=== PATIENT | female | born 1945 | race Caucasian/White ===

== ENCOUNTER 2021-07-27 19:40 | Inpatient (IN) ==
--- NOTE | 2021-07-27 19:57 | Emergency Department Note ---
History of Present Illness General Chief complaint: Fall Stated complaint: Fall Time Seen by Provider: 07/27/21 19:42 Source: patient and EMS Mode of arrival: EMS Limitations: clinical acuity History of Present Illness She comes in after apparently suffering mechanical fall at [facility] she was standing out of a lift chair and fell over. She did hit her head there was no apparent loss of consciousness. She is complaining of back pain and headache. She is wearing a cervical collar. She is on a backboard. Denies abdominal pain chest pain or shortness of breath. 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 She is on Eliquis. She has been vaccinated against COVID. Home Medications Medication Instructions Recorded Confirmed Type acetaminophen 500 mg tablet 1,000 mg PO Q6H PRN MDD 3 GRAMS/07/27/21 07/27/21 History (Tylenol Extra Strength) HOURS apixaban 5 mg tablet (Eliquis) 5 mg PO BID17 07/27/21 07/27/21 History atorvastatin 40 mg tablet 40 mg PO QAM 07/27/21 07/27/21 History buspirone 5 mg tablet 5 mg PO BID17 07/27/21 07/27/21 History cetirizine 10 mg tablet (Zyrtec) 10 mg PO QAM 07/27/21 07/27/21 History cholecalciferol (vitamin D3) 25 25 mcg PO QAM 07/27/21 07/27/21 History mcg (1,000 unit) capsule (Vitamin D3) citalopram 40 mg tablet 40 mg PO QAM 07/27/21 07/27/21 History clopidogrel 75 mg tablet (Plavix) 75 mg PO QAM 07/27/21 07/27/21 History docusate sodium 100 mg capsule 100 mg PO BID17 07/27/21 07/27/21 History furosemide 40 mg tablet (Lasix) 40 mg PO QAM 07/27/21 07/27/21 History lorazepam 0.5 mg tablet 0.5 mg PO BID17 07/27/21 07/27/21 History losartan 25 mg tablet 25 mg PO QAM 07/27/21 07/27/21 History metoprolol succinate 25 mg 25 mg PO QAM 07/27/21 07/27/21 History tablet,extended release 24 hr mirtazapine 15 mg tablet 15 mg PO HS 07/27/21 07/27/21 History nitroglycerin 0.4 mg sublingual 0.4 mg SUBLINGUAL DIRECTED PRN 07/27/21 07/27/21 History tablet (Nitrostat) polyethylene glycol 3350 17 17 g PO QAM 07/27/21 07/27/21 History gram/dose oral powder (Miralax) trazodone 50 mg tablet 50 mg PO HS 07/27/21 07/27/21 History white petrolatum (Vaseline) 1 applic TOPICAL BID17 07/27/21 07/27/21 History Allergies Allergy/AdvReac Type Severity Reaction Status Date / Time atorvastatin AdvReac Intermediate severe Verified 07/27/21 20:55 myalgias--SEE COMMENT morphine AdvReac Intermediate N/V Verified 07/27/21 20:55 Past Med/Surg History Medical History Anxiety H/O: HTN (hypertension) Surgical History No pertinent past surgical history Social History Smoking Status: Never smoker Preferred Language: Lebanese Feels Safe at Home: Yes Review of Systems A total of 10 systems reviewed and were otherwise negative Physical Exam Vital Signs Vital Signs - 24 hr 07/27/21 19:43 07/27/21 19:52 07/27/21 19:53 Temperature 36.3 C L Temperature Source Oral Pulse Rate 57 L 71 Pulse Rate [Right Finger] 63 Pulse Rhythm Irregular Pulse Rhythm [Right Finger] Regular Pulse Strength [Right Finger] Normal Respiratory Rate 21 21 16 Respiratory Effort / Characteristics Non-Labored Spontaneous Respiratory Depth Normal Respiratory Pattern Blood Pressure 210/85 H Blood Pressure [Right Arm] 188/82 H Blood Pressure Mean 126 Blood Pressure Mean [Right Arm] 117 Blood Pressure Position Lying Blood Pressure Position [Right Arm] Lying Pulse Oximetry 93 88 L 89 L Oxygen Delivery Method Nasal Cannula Room Air Room Air Oxygen Flow Rate 2 Sepsis Recent Fever Within 48 Hours No Sepsis New/Unexplained Change in Mental Status No Sepsis Action Taken by Nursing No Action Required 07/27/21 20:43 07/27/21 22:00 07/27/21 23:46 Temperature Temperature Source Pulse Rate Pulse Rate [Right Finger] 56 L 63 50 L Pulse Rhythm Pulse Rhythm [Right Finger] Regular Regular Pulse Strength [Right Finger] Normal Normal Respiratory Rate 22 21 16 Respiratory Effort / Characteristics Non-Labored Spontaneous Non-Labored Spontaneous Non-Labored Spontaneous Respiratory Depth Normal Normal Normal Respiratory Pattern Regular Blood Pressure Blood Pressure [Right Arm] 187/72 H 172/64 H Blood Pressure Mean Blood Pressure Mean [Right Arm] 110 100 Blood Pressure Position Blood Pressure Position [Right Arm] Sitting Pulse Oximetry 92 92 93 Oxygen Delivery Method Nasal Cannula Nasal Cannula Room Air Oxygen Flow Rate 2 2 Sepsis Recent Fever Within 48 Hours Sepsis New/Unexplained Change in Mental Status Sepsis Action Taken by Nursing General: Well developed well nourished older female who is boarded and collared and in no acute distress, breathing comfortably on room air. Normal speech HEENT: Normal cephalic atraumatic. There is in the right scalp from where she hit her head there is a small hematoma pupils are equal round and reactive to light. Extraocular movements are intact. Oropharynx is pink with moist mucous membranes. No swelling of the mouth lips or tongue. Neck: Collared with a midline trachea. No meningeal signs or stiffness, no JVD or bruits. No Stridor. Chest: Clear to auscultation bilaterally. No wheezes or rhonchi. No increased work of breathing. No rib or sternal tenderness no subcutaneous air Heart: Regular rate and rhythm without murmurs or gallops. Abdomen: Soft nontender, nondistended without rebound guarding or rigidity. No signs of trauma Extremities: No cyanosis clubbing or edema. No calf tenderness or assymetry Spine/Back. Non tender to palpation. No CVA tenderness Skin: Good turgor without rashes. Neurologic exam: Cranial nerves two through 12 are intact. She does have a fracture of her right hand but is able to move the arm. She moves both feet the left leg may be weaker than the right but I suspect this is baseline. Course Administered Medications Discontinued Medications Acetaminophen (Acetaminophen 1000 Mg/100 Ml Iv) 1,000 mg IV ONE ONE Stop: 07/27/21 20:49 Last Admin: 07/27/21 21:24 Dose: 1,000 mg Documented by: [id number] Fentanyl Citrate (Fentanyl Citrate 100 Mcg/2 Ml Vial) 25 mcg IV NOW ONE Stop: 07/27/21 23:02 Last Admin: 07/27/21 23:15 Dose: 25 mcg Documented by: [id number] Ioversol (Optiray 320 100ml) 94 ml IV ONCE ONE Stop: 07/27/21 21:12 Last Admin: 07/27/21 21:11 Dose: 94 ml Documented by: [id number] Ondansetron HCl (Ondansetron Inj 2 Mg/Ml 2 Ml Vial) 4 mg IV NOW STA Stop: 07/27/21 23:02 Last Admin: 07/27/21 23:15 Dose: 4 mg Documented by: [id number] Medical Decision Making Differential Diagnosis Fall, stroke, intracranial hemorrhage, electrolyte or metabolic abnormality, infection, traumatic injuries, internal bleeding, pneumothorax, spinal fracture/injury Medical Records Attestation: I reviewed the patient's medical records. Home Medications Current Medication List: was personally reviewed by me Laboratory Data Attestation: I reviewed the patient's lab results. Result diagrams: 07/27/21 20:20 07/27/21 21:23 Lab Results 07/27/21 07/27/21 07/27/21 Range/Units 20:20 20:20 20:20 WBC 6.49 (4.8-10.8) K/uL RBC 4.08 L (4.2-5.4) M/uL Hgb 12.9 (12.0-16.0) g/dL POC Hgb (12.0-16.0) g/dl Hct 39.4 (37-47) % POC Hct (37-47) % MCV 96.6 (80-100) fL MCH 31.6 (25-34) pg MCHC 32.7 (32-36) g/dL RDW Std Deviation 47.8 H (36.4-46.3) fL RDW Coeff of [place] 13.5 (11.5-14.5) % Plt Count 322 (130-400) K/uL MPV 9.9 (7.4-10.4) fL Immature Gran % (Auto) 0.2 % Neut % (Auto) 62.0 % Lymph % (Auto) 21.0 % [place] % (Auto) 13.3 % Eos % (Auto) 2.9 % Baso % (Auto) 0.6 % Neut # (Auto) 4.03 (1.4-6.5) K/uL Lymph # (Auto) 1.36 (1.2-3.4) K/uL [place] # (Auto) 0.86 H (0.11-0.59) K/uL Eos # (Auto) 0.19 (0-0.5) K/uL Baso # (Auto) 0.04 (0-0.2) K/uL Immature Gran # (Auto) 0.01 (0.00-0.02) K/uL PT Cancelled INR Cancelled APTT Cancelled PTT Ratio Cancelled POC Sodium (135-144) mmol/L Sodium 139 (136-145) mmol/L POC Potassium (3.3-5.0) mmol/L Potassium (3.5-5.1) mmol/L POC Chloride (101-112) mmol/L Chloride 105 (98-107) mmol/L Carbon Dioxide 26 (21-32) mmol/L POC Total CO2 (24-31) mmol/L Anion Gap 8 (3-11) POC Anion Gap (16-25) mmol/L POC BUN (7-18) mg/dl BUN 26 H (6-23) mg/dl Creatinine 1.06 (0.6-1.2) mg/dl POC Creatinine (0.6-1.3) mg/dl Est Cr Clr Drug Dosing 50.4 ml/min Est GFR ( Amer) 58.7 ml/min Est GFR (Non-Af Amer) 50.6 ml/min BUN/Creatinine Ratio 24.5 H (10-20) Glucose 102 H (70-99(Fasting)) mg/dl POC Glucose (other) (70-99) mg/dl Calcium 9.5 (8.5-10.1) mg/dl POC Ioniz Calcium [place] (1.12-1.32) mmol/l Total Bilirubin 0.3 (0.2-1.0) mg/dl AST (13-39) U/L ALT 22 (7-52) U/L Alkaline Phosphatase 87 (34-104) U/L Troponin I < 0.03 (0-0.04) ng/ml Total Protein 6.6 (6.0-8.3) gm/dl Albumin 3.9 (3.4-5.0) gm/dl Globulin 2.7 (2.5-4.0) gm/dl Albumin/Globulin Ratio 1.4 (0.9-2) Lipase 39 (11-82) U/L SARS-CoV-2, RNA, NAAT (NEGATIVE) 07/27/21 07/27/21 07/27/21 Range/Units 20:29 20:30 21:23 WBC (4.8-10.8) K/uL RBC (4.2-5.4) M/uL Hgb (12.0-16.0) g/dL POC Hgb 12.6 (12.0-16.0) g/dl Hct (37-47) % POC Hct 37 (37-47) % MCV (80-100) fL MCH (25-34) pg MCHC (32-36) g/dL RDW Std Deviation (36.4-46.3) fL RDW Coeff of [place] (11.5-14.5) % Plt Count (130-400) K/uL MPV (7.4-10.4) fL Immature Gran % (Auto) % Neut % (Auto) % Lymph % (Auto) % [place] % (Auto) % Eos % (Auto) % Baso % (Auto) % Neut # (Auto) (1.4-6.5) K/uL Lymph # (Auto) (1.2-3.4) K/uL [place] # (Auto) (0.11-0.59) K/uL Eos # (Auto) (0-0.5) K/uL Baso # (Auto) (0-0.2) K/uL Immature Gran # (Auto) (0.00-0.02) K/uL PT 10.3 INR 1.0 APTT 28.0 PTT Ratio 1.1 POC Sodium 142 (135-144) mmol/L Sodium (136-145) mmol/L POC Potassium 3.9 (3.3-5.0) mmol/L Potassium (3.5-5.1) mmol/L POC Chloride 104 (101-112) mmol/L Chloride (98-107) mmol/L Carbon Dioxide (21-32) mmol/L POC Total CO2 26 (24-31) mmol/L Anion Gap (3-11) POC Anion Gap 18.0 (16-25) mmol/L POC BUN 27 H (7-18) mg/dl BUN (6-23) mg/dl Creatinine (0.6-1.2) mg/dl POC Creatinine 1.2 (0.6-1.3) mg/dl Est Cr Clr Drug Dosing ml/min Est GFR ( Amer) ml/min Est GFR (Non-Af Amer) ml/min BUN/Creatinine Ratio (10-20) Glucose (70-99(Fasting)) mg/dl POC Glucose (other) 107 H (70-99) mg/dl Calcium (8.5-10.1) mg/dl POC Ioniz Calcium [place] 1.19 (1.12-1.32) mmol/l Total Bilirubin (0.2-1.0) mg/dl AST (13-39) U/L ALT (7-52) U/L Alkaline Phosphatase (34-104) U/L Troponin I (0-0.04) ng/ml Total Protein (6.0-8.3) gm/dl Albumin (3.4-5.0) gm/dl Globulin (2.5-4.0) gm/dl Albumin/Globulin Ratio (0.9-2) Lipase (11-82) U/L SARS-CoV-2, RNA, NAAT NEGATIVE (NEGATIVE) 07/27/21 Range/Units 21:23 WBC (4.8-10.8) K/uL RBC (4.2-5.4) M/uL Hgb (12.0-16.0) g/dL POC Hgb (12.0-16.0) g/dl Hct (37-47) % POC Hct (37-47) % MCV (80-100) fL MCH (25-34) pg MCHC (32-36) g/dL RDW Std Deviation (36.4-46.3) fL RDW Coeff of [place] (11.5-14.5) % Plt Count (130-400) K/uL MPV (7.4-10.4) fL Immature Gran % (Auto) % Neut % (Auto) % Lymph % (Auto) % [place] % (Auto) % Eos % (Auto) % Baso % (Auto) % Neut # (Auto) (1.4-6.5) K/uL Lymph # (Auto) (1.2-3.4) K/uL [place] # (Auto) (0.11-0.59) K/uL Eos # (Auto) (0-0.5) K/uL Baso # (Auto) (0-0.2) K/uL Immature Gran # (Auto) (0.00-0.02) K/uL PT INR APTT PTT Ratio POC Sodium (135-144) mmol/L Sodium (136-145) mmol/L POC Potassium (3.3-5.0) mmol/L Potassium 4.0 (3.5-5.1) mmol/L POC Chloride (101-112) mmol/L Chloride (98-107) mmol/L Carbon Dioxide (21-32) mmol/L POC Total CO2 (24-31) mmol/L Anion Gap (3-11) POC Anion Gap (16-25) mmol/L POC BUN (7-18) mg/dl BUN (6-23) mg/dl Creatinine (0.6-1.2) mg/dl POC Creatinine (0.6-1.3) mg/dl Est Cr Clr Drug Dosing ml/min Est GFR ( Amer) ml/min Est GFR (Non-Af Amer) ml/min BUN/Creatinine Ratio (10-20) Glucose (70-99(Fasting)) mg/dl POC Glucose (other) (70-99) mg/dl Calcium (8.5-10.1) mg/dl POC Ioniz Calcium [place] (1.12-1.32) mmol/l Total Bilirubin (0.2-1.0) mg/dl AST 21 (13-39) U/L ALT (7-52) U/L Alkaline Phosphatase (34-104) U/L Troponin I (0-0.04) ng/ml Total Protein (6.0-8.3) gm/dl Albumin (3.4-5.0) gm/dl Globulin (2.5-4.0) gm/dl Albumin/Globulin Ratio (0.9-2) Lipase (11-82) U/L SARS-CoV-2, RNA, NAAT (NEGATIVE) Imaging Data Attestation: I personally reviewed and interpreted this imaging study as follows: My Impression: CT the headthere are findings consistent with an old stroke on the right I do not appreciate any fracture or acute blood Radiologist's Impression: CT HEAD: Comparison: CT head without contrast 04/06/2011. No acute cranial hemorrhage, extra-axial fluid collection or mass-effect. No acute skull fracture. Large area of hypoattenuation involving the cortical and subcortical white matter of the right temporal, parietal and occipital lobes with ex vacuo dilatation of the right lateral ventricle and asymmetric prominence of the right sylvian fissure compared to the left, compatible with encephalomalacia, likely from a remote infarct right MCA distribution. There is a smaller area of hypoattenuation involving the cortical and subcortical white matter of the left parietal lobe, also compatible with encephalomalacia. If there is clinical concern for an acute infarct, an MRI of the brain may be obtained to better evaluate. Cerebral volume loss with moderate presumed chronic microvascular ischemic changes with the supratentorial white matter. CT C SPINE: No evidence of fracture or malalignment. Degenerative changes of the spine. CT CHEST With Contrast: Moderate hiatal hernia. Emphysematous changes most pronounced in the right greater than left upper lobes. Pleural parenchymal scarring within the right lung apex. Increased interstitial opacities bilaterally may represent interstitial pulmonary edema. Probable atelectasis visualized within the right greater than left lung base. There is an approximate 17 mm opacity in the lateral basal right lower lobe with a small internal area of cavitation, raising the possibility of septic embolism, infectious/inflammatory process with cavitary metastasis less likely though not excluded. Chronic left lateral fifth rib fracture and right anterior fourth and fifth rib fracture. Nondisplaced right posterior seventh and eighth rib fractures are also favored to be chronic. No definite acute rib fracture visualized. Cardiomegaly. CT of abdomen pelvis with contrast: No acute findings. No evidence of acute solid organ injury or acute fracture. Please refer to report. ECG Data Attestation: I personally reviewed and interpreted this ECG as follows: Indication: + weakness Rate (beats per minute): 58 Rhythm: + sinus bradycardia and + other (For baseline due to motion artifact) ECG Intervals/blocks: + Normal QRS, + Normal QT and + Normal [place] ECG [place]: + Normal ECG ST segments: + Normal ST segments and + T-wave inversions (Inferior) ECG Findings: + PACs Comparison ECG Date: from (03/09/11) Change: the following changes noted (T waves are now inverted inferiorly) MDM Narrative This patient comes in as described above she is brought in by ambulance from [facility]. I did see her upon arrival she apparently suffered mechanical fall she has had a baseline stroke but I do not believe has any acute neurologic deficits. I will confirm this with the daughter who is arriving as well. I am concerned she is on Eliquis and hit her head as well as potential other traumatic injuries. IV access and ordered kelley trauma scans as well as blood work. She was reassessed frequently. She was given IV Tylenol as she needed something for pain but could not take NSAIDs and said she got nauseated with morphine and did not want morphine initially. EKG does not show any definite ischemic changes she has some T wave inversions which may be new but her troponin is negative and she had no syncope or chest pain or shortness of breath. CAT scans show possibly new rib fractures on the right but there may be a chronic she is a lot of different chronic changes but there is no other acute traumatic injuries. She has no significant acrylate or metabolic abnormalities. She seems to do much better her daughter says that she is at her neurologic baseline. She does have a pain still and I looked through her records when she was admitted to [facility] she did receive morphine and fentanyl at the time and her reaction was more of a nausea rather than allergic so I did try a small dose of fentanyl 25 mcg IV and Zofran 4 mg IV. I do think she needs to be observed she has multiple medical problems her daughter was concerned that she thought she was weaker than usual prior to falling but nonfocal. I have consulted Dr. Harris to see her in the ER for these measures Continuous cardiac monitoring: Orders placed in EMR for continuous cardiac monitoring. Upon my interpretation, the patient was noted to be in sinus bradycardia with a rate of 55 Impression & Plan Lab test negative for COVID-19 virus, Fall, CHI (closed head injury), Fracture, ribs, Weakness, Current use of buttermaker helper anticoagulation Discharge Plan Visit Data Chief Complaint: Fall Stated Complaint: Fall ED Provider: Elvis Contreras Discharge Problem: Lab test negative for COVID-19 virus, Fall, CHI (closed head injury), Fracture, ribs, Weakness, Current use of half-way anticoagulation Forms Stand Alone Forms: My [facility] Prescriptions Prescriptions: No Action furosemide [Lasix] 40 mg Tablet 40 mg PO QAM RF: 0 atorvastatin 40 mg tablet 40 mg PO QAM RF: 0 buspirone 5 mg Tablet 5 mg PO BID17 RF: 0 citalopram 40 mg Tablet 40 mg PO QAM RF: 0 trazodone 50 mg Tablet 50 mg PO HS RF: 0 cetirizine [Zyrtec] 10 mg Tablet 10 mg PO QAM RF: 0 clopidogrel [Plavix] 75 mg Tablet 75 mg PO QAM RF: 0 acetaminophen [Tylenol Extra Strength] 500 mg Tablet 1,000 mg PO Q6H MDD 3 GRAMS/24 HOURS PRN (Reason: Pain) RF: 0 lorazepam 0.5 mg Tablet 0.5 mg PO BID17 RF: 0 losartan 25 mg Tablet 25 mg PO QAM RF: 0 nitroglycerin [Nitrostat] 0.4 mg Tablet, Sublingual 0.4 mg sublingual DIRECTED PRN (Reason: Chest Pain) RF: 0 docusate sodium 100 mg Capsule 100 mg PO BID17 RF: 0 mirtazapine 15 mg Tablet 15 mg PO HS RF: 0 metoprolol succinate 25 mg Tablet Extended Release 24 Hr 25 mg PO QAM RF: 0 polyethylene glycol 3350 [Miralax] 17 gram/dose Powder 17 g PO QAM RF: 0 white petrolatum [Vaseline] Gel 1 applic TOPICAL BID17 RF: 0 cholecalciferol (vitamin D3) [Vitamin D3] 25 mcg (1,000 unit) Capsule 25 mcg PO QAM RF: 0 Eliquis 5 mg Tablet 5 mg PO BID17 RF: 0 Referrals Referrals: Nishi Patel PA-C [Primary Care Provider] - Discharge Problem: Fall Qualifiers: Encounter type: initial encounter Qualified Code(s): W19.XXXA - Unspecified fall, initial encounter CHI (closed head injury) Qualifiers: Encounter type: initial encounter Qualified Code(s): S09.90XA - Unspecified injury of head, initial encounter Fracture, ribs Qualifiers: Encounter type: initial encounter Fracture type: closed Laterality: right Qualified Code(s): S22.41XA - Multiple fractures of ribs, right side, initial encounter for closed fracture
[2021-07-27 20:37] LABS: Basophils # (auto) 0.04 K/uL (0-0.2); Basophils % (auto) 0.6 %; Eosinophils # (auto) 0.19 K/uL (0-0.5); Eosinophils % (auto) 2.9 %; Hematocrit (blood only) 39.4 % (37-47); Hemoglobin 12.9 g/dL (12.0-16.0); Immature Granulocytes # (auto) 0.01 K/uL (0.00-0.02); Immature Granulocytes % (auto) 0.2 %; Lymphocytes # (auto) 1.36 K/uL (1.2-3.4); Mean Corpuscular Hemoglobin 31.6 pg (25-34); Mean Corpuscular Hgb Conc 32.7 g/dL (32-36); Mean Corpuscular Volume 96.6 fL (80-100); Mean Platelet Volume 9.9 fL (7.4-10.4); Monocytes # (auto) 0.86 K/uL (0.11-0.59); Monocytes % (auto) 13.3 %; Neutrophils # (auto) 4.03 K/uL (1.4-6.5); Platelet Count 322 K/uL (130-400); RDW Coefficient of Variation 13.5 % (11.5-14.5); RDW Standard Deviation 47.8 fL (36.4-46.3); Red Blood Count 4.08 M/uL (4.2-5.4); White Blood Count 6.49 K/uL (4.8-10.8)
[2021-07-27 20:41] LABS: iSTAT Creatinine 1.2 mg/dl (0.6-1.3); iSTAT Hemoglobin 12.6 g/dl (12.0-16.0); iSTAT Ionized Calcium 1.19 mmol/l (1.12-1.32); iSTAT Potassium 3.9 mmol/L (3.3-5.0)
[2021-07-27] MEDS ORDERED: ACETAMINOPHEN 1000 MG/100 ML IV IV ONE (20:48)
[2021-07-27 20:59] LABS: Troponin I < 0.03 ng/ml (0-0.04)
[2021-07-27 21:03] LABS: Alanine Aminotransferase 22 U/L (7-52); Albumin Globulin Ratio 1.4 (0.9-2); Albumin Level 3.9 gm/dl (3.4-5.0); Alkaline Phosphatase 87 U/L (34-104); Anion Gap 8 (3-11); BUN Creatinine Ratio 24.5 (10-20); Bilirubin,Total 0.3 mg/dl (0.2-1.0); Blood Urea Nitrogen 26 mg/dl (6-23); Calcium 9.5 mg/dl (8.5-10.1); Carbon Dioxide 26 mmol/L (21-32); Chloride 105 mmol/L (98-107); Creatinine Clr Calc Pharmacy 50.4 ml/min; Est GFR (African American) 58.7 ml/min; Est GFR (Non-African American) 50.6 ml/min; Globulin 2.7 gm/dl (2.5-4.0); Glucose 102 mg/dl (70-99(Fasting)); Lipase 39 U/L (11-82); Sodium 139 mmol/L (136-145); Total Protein 6.6 gm/dl (6.0-8.3)
[2021-07-27] MEDS ORDERED: OPTIRAY 320 100ml IV ONE (21:11)
[2021-07-27 21:41] LABS: Partial Thromboplastin Ratio 1.1; Prothrombin Time 10.3 Seconds (9.0-12.0)
[2021-07-27] MEDS ORDERED: fentaNYL citrate 100 MCG/2 ML VIAL IV ONE (23:01)
[2021-07-27] MEDS ORDERED: ONDANSETRON INJ 2 MG/ML 2 ML VIAL IV STA (23:01)
[2021-07-28] MEDS ORDERED: HYDROmorphone INJ 0.5 MG/0.5 ML SYR IV STA (00:45)
--- NOTE | 2021-07-28 03:05 | History and Physical Report ---
DATE OF ADMISSION: 07/27/2021. CHIEF COMPLAINT: Status post fall. HISTORY OF PRESENT ILLNESS: This 75-year-old female with past medical history significant for hyperlipidemia, hypertension, chronic kidney disease stage III, chronic systolic and diastolic CHF, hypertension, history of CVA and left sided weakness, history of internal and right carotid artery occlusion, nonrheumatic aortic valve and insufficiency, mitral valve regurgitation, history of arterial thrombosis, peripheral artery disease, generalized osteoarthritis, antiphospholipid syndrome, psoriasis, depression, anxiety, left hemianopia. The patient lives at [facility] with her . She is mostly wheelchair bound and she can walk short distance with a walker. She eats regular food and swallows okay. Daughter is in the room who is helping with the history. Since yesterday, she has getting more weak on left side than usual and today after eating dinner, she was trying to come back to room and trying to go to bathroom with a walker when she felt weak and fell backwards and brought in here. Imaging x-rays shows possible acute on chronic rib fractures, some questionable cavitary lesions on CT chest. Daughter is also worried that she might have new stroke. Initial CT head was okay. Daughter is okay to get MRI scan of the brain. Currently, the patient received some pain medication, mostly is drowsy. She states the pain is better and she is doing okay. As per daughter, no complaints of any chest pain or shortness of breath, no cough, no fevers, no nausea, no vomiting, no abdominal pain. Normal bowel and bladder movements. No other complaints. ALLERGIES: MELOXICAM AND MORPHINE. PAST MEDICAL HISTORY: As mentioned above. PAST SURGICAL HISTORY: Colonoscopy, EGDs, breast lumpectomy, ankle surgery, angiography extremity bilateral, mechanical arterial thrombectomy bilateral. MEDICATIONS: The patient is on Tylenol Extra Strength 1000 mg p.o. q. 6 hours p.r.n., Eliquis 5 mg p.o. b.i.d., atorvastatin 40 mg q.a.m., buspirone 5 mg p.o. b.i.d., Zyrtec 10 mg p.o. a.m., vitamin D 25 mcg p.o. daily, citalopram 40 mg p.o. a.m., Plavix 75 mg p.o. a.m., Colace 100 mg p.o. b.i.d., Lasix 40 mg p.o. a.m., lorazepam 0.5 mg p.o. b.i.d., losartan 25 mg p.o. a.m., metoprolol succinate 25 mg p.m., Remeron 15 mg p.o. at bedtime, Nitrostat 0.4 mg sublingual p.r.n., MiraLax 17 g p.o. a.m., trazodone 50 mg p.o. at bedtime. FAMILY HISTORY: Significant for father had an accident; mother had PE. SOCIAL HISTORY: Currently . Currently, lives in [facility]. No smoking, no alcohol, no drug use. REVIEW OF SYSTEMS: As per HPI. Could not g complete ROS as patient is drowsy.. PHYSICAL EXAMINATION: GENERAL: The patient is somewhat drowsy. VITAL SIGNS: Temperature 36.3, pulse 54, respiratory rate 21, blood pressure 146/67, oxygen 94% on 2 liters. HEENT: Pupils equal, round and reactive to light. Oral mucosa dry. NECK: No JVD, no neck masses. CARDIOVASCULAR: S1 and S2 heard. Regular rate and rhythm. No murmur, no gallop. RESPIRATORY SYSTEM: Normal AP diameter. No accessory muscle use. No wheezing, no crackles. ABDOMEN: Soft, bowel sounds present, nontender, no distention. CENTRAL NERVOUS SYSTEM: Alert and awake. Obeys simple commands. Moves extremities and left-sided weakness is present. EXTREMITIES: No edema, no erythema. LABORATORY DATA: WBC 6.4, hemoglobin 12.9, hematocrit 39.4, platelets 322. PT 10.3, INR 1, APTT 28. Sodium 139, potassium 4, chloride 105, CO2 of 26, BUN 26, creatinine 1.06, serum glucose 102, calcium 9.5, ionized calcium 1.19, total bilirubin 0.3, AST 21, ALT 22, alkaline phosphatase 87. Troponin I less than 0.03. Lipase 39. SARS-CoV-2 RNA negative. IMAGING DATA: CT of the head, preliminary report, no acute intracranial hemorrhage or mass effect. No acute skull fracture. Encephalomalacia, likely from remote infarct of the right MCA distribution. CT chest, moderate hiatal hernia, pleural parenchymal scarring with right lung apex, increased interstitial opacities bilaterally, may represent interstitial pulmonary edema, questionable right base lobe cavitation, nondisplaced right posterior 7th and 8th rib fracture to be chronic. Cervical spine CT no acute findings. CT of the abdomen and pelvis no acute findings. EKG: Sinus bradycardia with PVCs at a rate of 58 . q waves in inferior leads. ASSESSMENT AND PLAN: This is a 75-year-old female who presents with fall. 1. Fall, mostly mechanical fall. Patinet from previous stroke has left sided weakness, mostly wheelchair and she can walk short distance with a walker, daughter thinks the left sided weakness is more than usual. We will get MRI scan to rule out any acute on chronic stroke. PT, OT when stable. Monitor in the [employer] tele. 2. Lung lesions on the preliminary CT scan shows possible cavitary lesion of the lung. We will follow the final report and confirm. We will consult Pulmonary if confirmed.. 3. History of cerebrovascular accident: On Eliquis, Plavix and statin. PT, OT when stable. Left sided weakness from old stroke. 4. History of chronic systolic and diastolic congestive heart failure. Echo done on 10/31/2019 shows EF of 20-25%. The patient is on Lasix. We will monitor for any volume overload. Patient also is on losartan and metoprolol succinate. Monitor in the [employer] tele. 5. History of hypertension: On metoprolol succinate, losartan. We will monitor the blood pressure. 6. History of antiphospholipid syndrome, on Eliquis. 7. History of arterial thrombosis, peripheral artery disease on Plavix, Eliquis and statin. 8. Hyperlipidemia: On statin. 9. Anxiety and depression, on Remeron, Ativan p.r.n., trazodone, buspirone and citalopram. 10. Deep venous thrombosis prophylaxis: On Eliquis. DISPOSITION: Closely monitor in the [employer] tele. PT/OT prior to discharge. Social service to help discharge planning. Discharge back to [facility] when stable. CODE STATUS: DNR/DNI as per discussion with the doctor. Job ID: [id number] [facility]
[2021-07-28] MEDS ORDERED: NITROGLYCERIN SL 0.4 MG/TAB TAB SL PRN ×2 (03:54)
[2021-07-28] MEDS ORDERED: POLYETHYLENE (MIRALAX) 17 GM PACK PO PRN (03:54)
[2021-07-28] MEDS ORDERED: ONDANSETRON INJ 2 MG/ML 2 ML VIAL IV PRN (03:54)
[2021-07-28] MEDS ORDERED: LORazepam 0.25 MG/0.5 ML VIAL IV PRN (03:54)
[2021-07-28] MEDS: ACETAMINOPHEN 325 MG TAB PO PRN (07:11)
--- NOTE | 2021-07-28 07:18 | CT Scan Report ---
CT OF THE HEAD WITHOUT CONTRAST CLINICAL HISTORY: fall COMPARISON STUDY: Head CT April 06, 2011. TECHNIQUE: Helical axial images of the head were obtained without IV contrast. Automated exposure con trol was utilized for the study. A dose lowering technique was utilized adhering to the principles o f ALARA. FINDINGS: No acute intracranial hemorrhage, midline shift or mass effect is present. Extensive enceph alomalacia within the right cerebral hemisphere is noted. There is also left parieto-occipital enceph alomalacia. There is associated dilatation of the right lateral ventricle. Basal cisterns are patent. No extra axial collections are present. White matter hypodensities are again noted. There is no acut e fracture. IMPRESSION: 1. No acute intracranial hemorrhage. No acute calvarial fracture. 2. Extensive encephalomalacia within the right cerebral hemisphere and left parieto-occipital encepha lomalacia. The findings favor old infarcts. ACT 112: Negative or not required by law. Electronically signed by: Alden Judd M.D. 07/28/2021 7:17 AM
--- NOTE | 2021-07-28 07:21 | CT Scan Report ---
CT OF THE CERVICAL SPINE WITHOUT CONTRAST CLINICAL HISTORY: fall COMPARISON STUDY: No previous studies for comparison. TECHNIQUE: Helical axial images of the cervical spine were obtained without IV contrast. Sagittal a nd coronal reconstructions were viewed. Automated exposure control was utilized for the study. A do se lowering technique was utilized adhering to the principles of ALARA. FINDINGS: Alignment of the cervical spine is anatomic. Vertebral body heights are maintained. No acut e cervical spine fracture or subluxation is present. There is no prevertebral edema. Facet joints are intact. Severe multilevel facet arthrosis is present. There is moderate disc space narrowing and os teophytosis at C6-C7 and mild disc space narrowing at C7-T1. There are degenerative changes at the C1 -C2 articulation. IMPRESSION: No acute cervical spine fracture or subluxation. ACT 112: Negative or not required by law. Electronically signed by: Alden Judd M.D. 07/28/2021 7:20 AM
--- NOTE | 2021-07-28 08:27 | CT Scan Report ---
CT OF THE CHEST WITH IV CONTRAST CLINICAL HISTORY: Fall. COMPARISON STUDY: Chest radiograph April 04, 2011. TECHNIQUE: Following IV administration of 94 mL of Optiray, helical axial images of the chest were o btained. Sagittal and coronal reconstructions were viewed as well as maximal intensity projections o n an independent 3-D workstation. Automated exposure control was utilized for the study. A dose low ering technique was utilized adhering to the principles of ALARA. FINDINGS: There is no evidence for traumatic injury to the thoracic aorta. Cardiomegaly is noted. Th ere is no pericardial effusion. Moderate-sized hiatal hernia is noted. No pneumothorax or pleural eff usion is noted. Several old bilateral rib fractures are noted. No acute rib or thoracic spine fractur e is noted. Slight loss of height of the superior endplates of T2 and T3 is likely chronic. There are several mildly enlarged mediastinal lymph nodes. Index right lower paratracheal lymph node measures 1.9 x 1.6 cm. There is moderate emphysema. Probable biapical scarring. Interlobular septal thickening is noted. Note is made of a 2.2 x 1.5 cm cavitary nodular opacity within the right lower lobe on [address]. There is a 1.6 x 1.3 cm subpleural nodular opacity within the right middle lobe. Additi onal smaller subpleural opacity within the posterior basal segment of the right lower lobe is present . Abdomen and pelvis will be reported separately. IMPRESSION: 1. No acute traumatic findings within the chest. 2. 2.2 x 1.5 cm cavitary nodular opacity within the right lower lobe. Given the additional right midd le and right lower lobe airspace opacities, an infectious process is favored. However, a neoplastic p rocess could appear similar. Therefore, a follow-up chest CT in 3 months to ensure resolution is carolyn mmended. 3. Several mildly enlarged mediastinal lymph nodes which should be assessed on follow-up CT. 4. Emphysema. 5. Suspected mild interstitial pulmonary edema. ACT 112: Positive. There are findings on this exam that require communication between the performing entity and the patient following Patient Test Result Information Act ([place] Act 112) guidelines. Electronically signed by: Alden Judd M.D. 07/28/2021 8:26 AM
[2021-07-28] MEDS: busPIRone 5 MG TAB PO SCH ×2 (08:31→16:56)
[2021-07-28] MEDS: LORazepam 0.5 MG TAB PO SCH ×2 (08:31→16:56)
[2021-07-28] MEDS: CITALOPRAM 40 MG TAB PO SCH (08:31)
[2021-07-28] MEDS: CETIRIZINE HCL 10 MG TABLET PO SCH (08:31)
[2021-07-28] MEDS: ATORVASTATIN 40 MG TAB PO SCH (08:31)
[2021-07-28] MEDS: LOSARTAN POTASSIUM 25 MG TAB PO SCH (08:32)
[2021-07-28] MEDS: FUROSEMIDE 40 MG TAB PO SCH (08:32)
[2021-07-28] MEDS: CLOPIDOGREL BISULFATE 75 MG TAB PO SCH (08:32)
[2021-07-28] MEDS: DOCUSATE SODIUM 100 MG CAP PO SCH ×2 (08:36→16:56)
[2021-07-28] MEDS: CHOLECALCIFEROL 1,000 UNITS 25 MCG TAB PO SCH (08:36)
[2021-07-28] MEDS: APIXABAN 5 MG TABLET PO SCH ×2 (08:36→16:56)
[2021-07-28] MEDS: POLYETHYLENE (MIRALAX) 17 GM PACK PO SCH (08:37)
--- NOTE | 2021-07-28 08:41 | CT Scan Report ---
CT OF THE ABDOMEN AND PELVIS WITH CONTRAST CLINICAL HISTORY: fall COMPARISON STUDY: None. TECHNIQUE: Following IV administration of 94 mL of Optiray, axial images of the abdomen and pelvis we re obtained from the lung bases to the proximal femurs. Images were reviewed in the axial, sagittal, and coronal planes. IV contrast was administered without complication. Automated exposure control wa s utilized for the study. A dose lowering technique was utilized adhering to the principles of ALARA . FINDINGS: A cavitary nodular opacity within the right lower lobe is better depicted on the chest CT. Please see that report for further description. A hiatal hernia is present. No hemoperitoneum or pneu moperitoneum is present. There is no evidence for traumatic injury to the liver, spleen, adrenal glan ds, kidneys or pancreas. A 5.6 cm left renal cyst is noted. Multiple subcentimeter left renal lesions are too small to characterize. Moderate renal cortical thinning is present. No hydronephrosis. No ev idence for a bowel obstruction. No bowel wall thickening. The appendix is normal. There is no lymphad enopathy. Moderate aortoiliac atherosclerotic plaque is noted. No acute lumbar spine or pelvic fractu re is identified. IMPRESSION: 1. No acute traumatic findings within the abdomen or pelvis. 2. Cavitary nodular opacity within the right lower lobe. Please see the chest CT report for further d escription. 3. Hiatal hernia. ACT 112: Negative or not required by law. Electronically signed by: Alden Judd M.D. 07/28/2021 8:40 AM
[2021-07-28] MEDS ORDERED: METOPROLOL SUCC 25MG EXT REL TAB PO SCH (09:00)
[2021-07-28] MEDS ORDERED: WHITE PETROLATUM TOP SCH (09:00)
--- NOTE | 2021-07-28 10:35 | Electrocardiogram Report ---
Test Reason : Blood Pressure : / mmHG Vent. Rate : 058 BPM Atrial Rate : 058 BPM P-R Int : 194 ms QRS Dur : 090 ms QT Int : 462 ms P-R-T Axes : 110 042 015 degrees QTc Int : 453 ms Sinus bradycardia with Premature supraventricular complexes and with occasional Premature ventricular complexes Poor R wave progression, consider anterior VA vs. lead placement vs. LVH Abnormal ECG When compared with ECG of 27-JUL-2021 19:57, (unconfirmed) Premature supraventricular complexes are now Present Confirmed by Boris Castillo ([id number]) on 07/28/2021 10:34:47 AM Referred By: REFERRED SELF Confirmed By:Milan Castillo
--- NOTE | 2021-07-28 10:36 | Electrocardiogram Report ---
Test Reason : Blood Pressure : / mmHG Vent. Rate : 064 BPM Atrial Rate : 064 BPM P-R Int : 164 ms QRS Dur : 090 ms QT Int : 452 ms P-R-T Axes : 000 031 -02 degrees QTc Int : 466 ms Poor data quality, interpretation may be adversely affected Sinus rhythm with sinus arrhythmia with occasional Premature ventricular complexes Poor R wave progression, consider anterior NE vs. lead placement vs. LVH Abnormal ECG Confirmed by Boris Castillo ([id number]) on 07/28/2021 10:35:45 AM Referred By: REFERRED SELF Confirmed By:Milan Castillo
--- NOTE | 2021-07-28 11:19 | Communication Note ---
Date of Service: July 28, 2021 Patient seen and examined Reports only left sided weakness which is chronic and chronic blurred vision Denied any cough, shortness of breath, fevers, chills, nausea, vomiting, dysuria, frequency, urgency, hematuria Exam notable for elderly woman in no distress, left hemiparesis Lab reviewed Head CT did not show fracture/acute hemorrhage, has encephalomalacia Chest CT reported a 2.2x1.5cm cavitary nodular opacity in RLL. Fall H/O CVA with left hemiparesis Fall likely due to late effects of CVA with left hemiparesis PT/OT eval Will appreciate Pulm recs w/respect to Chest CT findings Patient reports h/o left breast lesion that was treated Agree with other plans as detailed by Dr Harris in H&P this morning
[2021-07-28] MEDS: LORAZEPAM 0.25 MG IV PRN (11:39)
--- NOTE | 2021-07-28 12:57 | Pulmonary Consultation ---
Date of Consultation July 28, 2021 Assessment & Plan (1) Multiple pulmonary nodules: (2) Abnormal chest CT: CT chest 07/27/2021 personally reviewed: Biapical scarring, interlobular thickening Right middle lobe peripheral 1.3 x 1.6 cm nodule right lower lobe per ipheral 1.5 x 2.2 cm nodule R4 1.6 x 1.9 cm lymph node --Pulmonary nodules Both of them are on the periphery with one having possible cavitary lesion Patient has minimal reactive mediastinal lymphadenopathy as well as station 4R I will treat as if the patient has pneumonia right now She will need a repeat CAT scan in 6-8 weeks to see if the nodule still present and if they are still present then PET/CT could be considered --Ex-smoker Patient does have [id number] smoking history, quit at the age of 38 She denies any issues with her breathing She is usually wheelchair-bound I do not think patient needs to be on any standing inhalers --A. fib On anticoagulation apixaban Plan: Would recommend 2D echo to make sure there is no vegetation/endocarditis Treat the patient with antibiotics and I started the patient on Rocephin and doxycycline No plan for bronchoscopy currently. Would recommend repeating a CT chest in 6-8 weeks to see if the nodules are still present Case was discussed with Dr. Hayward All questions inquiries of the patient as well as patient's daughter were answered in depth Please note the above document was generated using voice recognition software. It may contain grammatical, syntax or spelling errors.Any formal questions or concerns about the content, text or information contained within the body of this dictation should be directly addressed to the provider for clarification. History of Present Illness Attending Physician: Kat Hayward MD History of Present Illness 75-year-old female presented to the hospital s/p fall Past medical history: History of breast CA left-sided s/p lumpectomy and radiati on, history of CVA with left-sided residual weakness, aortic valve insufficiency, mitral valve regurg, CKD stage III, current systolic and diastolic CHF, dyslipidemia Patient had kelley CT done s/p fall and she was found to have pulmonary nodules Pulmonary were consulted for the same At the time of examination patient's daughter was also in the room Patient denies any issues when it comes to her breathing. She is usually wheelchair-bound She does not exert herself Denies any wheezing Denies any cough, no fever or chills No chest tightness No night sweats, no unintentional weight loss. Patient has been actually gaining some weight. No dysuria, no diarrhea. Patient is unsure if she ever had a CT chest done in the past Social history: [id number] smoking history, quit at the age of 38 when she was diagnosed with breast CA No history of lung cancer in the family. Allergies Allergy/AdvReac Type Severity Reaction Status Date / Time atorvastatin AdvReac Intermediate severe Verified 07/27/21 20:55 myalgias--SEE COMMENT morphine AdvReac Intermediate N/V Verified 07/27/21 20:55 Home Medications Medication Instructions Recorded Confirmed Type acetaminophen 500 mg tablet 1,000 mg PO Q6H PRN MDD 3 GRAMS/24 07/27/21 07/27/21 History (Tylenol Extra Strength) HOURS apixaban 5 mg tablet (Eliquis) 5 mg PO BID17 07/27/21 07/27/21 History atorvastatin 40 mg tablet 40 mg PO [facility] 07/27/21 07/27/21 History buspirone 5 mg tablet 5 mg PO BID17 07/27/21 07/27/21 History cetirizine 10 mg tablet (Zyrtec) 10 mg PO QA 07/27/21 07/27/21 History cholecalciferol (vitamin D3) 25 25 mcg PO QA 07/27/21 07/27/21 History mcg (1,000 unit) capsule (Vitamin D3) citalopram 40 mg tablet 40 mg PO [facility] 07/27/21 07/27/21 History clopidogrel 75 mg tablet (Plavix) 75 mg PO [facility] 07/27/21 07/27/21 History docusate sodium 100 mg capsule 100 mg PO BID17 07/27/21 07/27/21 History furosemide 40 mg tablet (Lasix) 40 mg PO QA 07/27/21 07/27/21 History lorazepam 0.5 mg tablet 0.5 mg PO BID17 07/27/21 07/27/21 History losartan 25 mg tablet 25 mg PO QAM 07/27/21 07/27/21 History metoprolol succinate 25 mg 25 mg PO [facility] 07/27/21 07/27/21 History tablet,extended release 24 hr mirtazapine 15 mg tablet 15 mg PO HS 07/27/21 07/27/21 History nitroglycerin 0.4 mg sublingual 0.4 mg SUBLINGUAL DIRECTED PRN 07/27/21 07/27/21 History tablet (Nitrostat) polyethylene glycol 3350 17 17 g PO QAM 07/27/21 07/27/21 History gram/dose oral powder (Miralax) trazodone 50 mg tablet 50 mg PO HS 07/27/21 07/27/21 History white petrolatum (Vaseline) 1 applic TOPICAL BID17 07/27/21 07/27/21 History Patient History Medical History Anxiety H/O: HTN (hypertension) Surgical History No pertinent past surgical history Social History Smoking Status: Former smoker Second Hand Exposure: No; Hx Alcohol Use: No Hx Substance Use: No Preferred Language: Faroese Communication Ability: Effective Business Initiatives Manager Required: No Beliefs That Will Affect Care: None Current Living Situation: Personal Care Facility Current Living Situation Comment: [facility] How many Children do You have: 1 Other Information That Helps Us Care for You: No Feels Safe at Home: Yes Safety Concerns: Feels Safe At This Time Assistive Devices: Glasses, Oxygen - Continuous and Walker Review of Systems Review of Systems: All systems reviewed & are unremarkable except as noted in HPI & below Physical Exam Physical Exam: Constitutional: No acute distress HEENT: EOMI, PERRLA Respiratory system: Decreased antibiotic, no wheeze, no rhonchi, mild crackles bilateral lower lobes CVS: S1-S2 positive, no murmurs or gallops Abdomen: Soft, nontender, nondistended, positive bowel sounds x4 Extremities: +2 pulses bilaterally radialis/ dorsalis pedis, no cyanosis, no edema, left upper extremity contracture Neuro: Awake alert oriented x3 Psych: Normal mood and affect G/U: No Ma Skin: no rashes, warm and dry Lymphatic: no cervical or axillary lymphadenopathy Results & Data Results & Data ([facility]) Vital Signs (Past 12 Hours) Vital Signs Temp Pulse Pulse Pulse Resp BP BP 07/28/21 11:36 36.7 C 53 L 15 112/74 07/28/21 07:40 36.7 C 56 L 16 122/76 07/28/21 07:22 56 L 07/28/21 04:26 48 L 07/28/21 03:58 36.3 C L 51 L 16 171/74 H 07/28/21 03:11 45 L 16 139/69 07/28/21 02:00 56 L 18 Pulse Ox 07/28/21 11:36 07/28/21 07:40 96 07/28/21 07:22 07/28/21 04:26 07/28/21 03:58 94 07/28/21 03:11 95 07/28/21 02:00 93 Laboratory Results 07/27/21 20:20 07/27/21 21:23 PG Care Time/CCT Total # of Minutes Spent Total Time Spent with Patient: Total time spent is greater than 50% in coordination of care (as documented) at patient's floor/unit and/or counseling patient: [place] [address] Initial Inpt Care Lvl 3 Patient Type New Diagnoses Multiple pulmonary nodules R91.[address] R93.89
[2021-07-28] MEDS ORDERED: GADOBUTROL 65ML VIAL IV ONE (13:10)
[2021-07-28] MEDS: cefTRIAXone SODIUM 2,000 MG in DEXTROSE 5% 50 ML IV SCH (13:28)
[2021-07-28] MEDS: HYDROmorphone INJ 0.5 MG/0.5 ML SYR IV PRN ×2 (13:28→20:45)
--- NOTE | 2021-07-28 13:54 | Magnetic Resonance Report ---
MR brain wo/w con HISTORY: 75 years-old Female cva? increased left sided weakness acute strokelike symptoms COMPARISON: Head CT 07/27/2021, 04/06/2011. TECHNIQUE: Multiplanar multisequence MRI of the brain was obtained both with and without the use of 9 cc Gadavist FINDINGS: [employer] Marker localizer images demonstrate no gross extracranial abnormality. No restricted diffusion to sugg est acute or subacute infarct. Midline structures appear unremarkable. The postcontrast images are mo tion degraded. No acute intracranial hemorrhage, midline shift, abnormal extra axial collection, hydr ocephalus or intracranial mass. Age-related involutional changes. Extensive white matter hypodensitie s suggest chronic microvascular ischemic disease. Large areas of encephalomalacia and gliosis are not ed throughout the right middle and posterior cerebral artery distributions and left parietal lobe. Th ere is no abnormal intra-axial or extra-axial enhancement identified. Chronic lacunar infarcts of the cerebellum. The cerebral venous sinuses and major arterial flow voids appear patent. The mastoid air cells and paranasal sinuses are generally clear. The skull, orbits an d soft tissues are unremarkable. IMPRESSION: 1. No acute intracranial abnormality. No acute or subacute infarct. 2. Large areas of encephalomalacia within the right cerebral hemisphere and left parietal lobe with g liosis are compatible with chronic infarctions, new from the 04/06/2011 study. 3. Age-related involutional changes with advanced chronic microvascular ischemic disease. 4. No abnormal enhancement. ACT 112: Negative or not required by law. The above report was generated using voice recognition software. It may contain grammatical, syntax o r spelling errors. Electronically signed by: Niranjan Ocasio M.D. 07/28/2021 1:53 PM
[2021-07-28] MEDS: DOXYCYCLINE HYCLATE 100 MG in DEXTROSE 5% 100 ML IV SCH (15:48)
[2021-07-28] MEDS: MIRTAZAPINE TAB 15 MG TAB PO SCH (20:49)
[2021-07-28] MEDS: traZODone HCL 50 MG TAB PO SCH (20:49)
[2021-07-29] MEDS: DOXYCYCLINE HYCLATE 100 MG in DEXTROSE 5% 100 ML IV SCH ×2 (01:55→13:48)
[2021-07-29 06:07] LABS: BUN Creatinine Ratio 23.1 (10-20); Calcium 8.6 mg/dl (8.5-10.1); Creatinine Clr Calc Pharmacy 57.1 ml/min; Est GFR (African American) 70.5 ml/min; Est GFR (Non-African American) 60.9 ml/min
[2021-07-29 06:14] LABS: Hematocrit (blood only) 36.3 % (37-47); Hemoglobin 11.6 g/dL (12.0-16.0); Mean Corpuscular Hemoglobin 30.9 pg (25-34); Mean Corpuscular Volume 96.8 fL (80-100); Mean Platelet Volume 9.7 fL (7.4-10.4); Nucleated RBC # (auto) 0.11 K/uL (0-0); Nucleated RBC % (auto) 1.9 %; Platelet Count 274 K/uL (130-400); RDW Coefficient of Variation 13.7 % (11.5-14.5); RDW Standard Deviation 48.5 fL (36.4-46.3); Red Blood Count 3.75 M/uL (4.2-5.4); White Blood Count 5.77 K/uL (4.8-10.8)
[2021-07-29 06:15] LABS: Basophils # (auto) 0.02 K/uL (0-0.2); Basophils % (auto) 0.3 %; Eosinophils % (auto) 3.5 %; Immature Granulocytes # (auto) 0.02 K/uL (0.00-0.02); Immature Granulocytes % (auto) 0.3 %; Lymphocytes # (auto) 0.86 K/uL (1.2-3.4); Lymphocytes % (auto) 14.9 %; Monocytes # (auto) 0.88 K/uL (0.11-0.59); Monocytes % (auto) 15.3 %; Neutrophils # (auto) 3.79 K/uL (1.4-6.5); Neutrophils % (auto) 65.7 %; RBC Morphology Unremarkable
[2021-07-29] MEDS: busPIRone 5 MG TAB PO SCH ×2 (09:49→16:12)
[2021-07-29] MEDS: LOSARTAN POTASSIUM 25 MG TAB PO SCH (09:50)
[2021-07-29] MEDS: FUROSEMIDE 40 MG TAB PO SCH (09:50)
[2021-07-29] MEDS: CLOPIDOGREL BISULFATE 75 MG TAB PO SCH (09:50)
[2021-07-29] MEDS: APIXABAN 5 MG TABLET PO SCH ×2 (09:50→16:12)
[2021-07-29] MEDS: DOCUSATE SODIUM 100 MG CAP PO SCH ×2 (09:50→16:11)
[2021-07-29] MEDS: CHOLECALCIFEROL 1,000 UNITS 25 MCG TAB PO SCH (09:50)
[2021-07-29] MEDS: CETIRIZINE HCL 10 MG TABLET PO SCH (09:51)
[2021-07-29] MEDS: POLYETHYLENE (MIRALAX) 17 GM PACK PO SCH (09:51)
[2021-07-29] MEDS: CITALOPRAM 40 MG TAB PO SCH (09:51)
[2021-07-29] MEDS: ATORVASTATIN 40 MG TAB PO SCH (09:51)
[2021-07-29] MEDS: LORazepam 0.5 MG TAB PO SCH ×2 (09:54→16:15)
--- NOTE | 2021-07-29 10:42 | Hospitalist Progress Note ---
Date of Service July 29, 2021 Assessment & Plan (1) Fall: (2) Abnormal chest CT: (3) Current use of nursing home anticoagulation: (4) Fracture, ribs: Plan: Patient presented after [facility] fall. Patient has history of stroke with left-sided weakness some mostly uses wheelchair and short distance with walker. Fall likely due to late effects of CVA with left-sided hemiparesis. CT head and MRI brain did not show any acute stroke. Patient found to have some abdominal findings on CT chest. CT chest noted some nodules with one cavitary lesion. Patient was evaluated by sapphire stylus grinder and started on antibiotics. Patient reported history of breast cancer levels completely treated with surgery and radiation. Get 2D echo recommended by sapphire stylus grinder. Patient will need repeat CT chest in 6 to 8 weeks to reassess. Patient has history of antiphospholipid syndrome, thrombosis, PAD. Continue home Eliquis, atorvastatin, Plavix. Patient also has chronic systolic and diastolic heart failure. Continue losartan. Metoprolol succinate and Lasix. May need 2 step on discharge if able Daughter called and updated Admission and Anticipated Discharge Date Admission Date: July 28, 2021 Subjective Patient seen and examined Patient is awake, alert and oriented to person and place Denied cough, chest pain, shortness of breath Denied nausea, vomiting, diarrhea, abd pain, constipation Denied dysuria, freq, urgency Physical Exam Constitutional: + well hydrated and + obese; no acute distress Eyes: PERRL, conjunctivae normal, anicteric sclerae ENMT: external ear and nose normal, oropharynx normal Respiratory: normal respiratory effort; no respiratory distress Auscultation: + diminished lung sounds Cardiovascular: Rate/Rhythm: regular rate and regular rhythm S1 S2 Gastrointestinal (Abdomen): normal bowel sounds, soft, nontender, no hepatosplenomegaly Musculoskeletal: No pedal edema Neurologic: PERRL, EOMI, accommodation nl, no face palsy, no dysarthria Left hemiparesis Psychiatric: A+Ox3, euthymic affect Results & Data Results & Data ([facility]) Vital Signs (Past 12 Hours) Vital Signs Temp Pulse Pulse Resp BP BP Pulse Ox 07/29/21 08:04 36.3 C L 52 L 16 137/76 99 07/29/21 07:28 48 L 07/29/21 04:33 36.4 C L 54 L 20 133/62 96 07/29/21 00:14 67 07/28/21 23:53 36.9 C 60 18 127/76 98 Laboratory Results Abnormal lab results 07/29/21 07/29/21 Range/Units 05:16 05:16 RBC 3.75 L (4.2-5.4) M/uL Hgb 11.6 L (12.0-16.0) g/dL Hct 36.3 L (37-47) % RDW Std Deviation 48.5 H (36.4-46.3) fL Lymph # (Auto) 0.86 L (1.2-3.4) K/uL Isabella # (Auto) 0.88 H (0.11-0.59) K/uL Absolute Nucleated RBC 0.11 H (0-0) K/uL BUN/Creatinine Ratio 23.1 H (10-20) (1) Fall Encounter type: initial encounter Qualified Code(s): W19.XXXA - Unspecified fall, initial encounter (2) Fracture, ribs Encounter type: initial encounter Fracture type: closed Laterality: right Qualified Code(s): S22.41XA - Multiple fractures of ribs, right side, initial encounter for closed fracture
[2021-07-29] MEDS: cefTRIAXone SODIUM 2,000 MG in DEXTROSE 5% 50 ML IV SCH (13:48)
[2021-07-29] MEDS: ACETAMINOPHEN 325 MG TAB PO PRN (13:55)
--- NOTE | 2021-07-29 16:01 | Pulmonology Progress Note ---
Date of Service July 29, 2021 Assessment & Plan (1) Multiple pulmonary nodules: (2) Abnormal chest CT: Plan: CT chest 07/27/2021 personally reviewed: Biapical scarring, interlobular thickening Right middle lobe peripheral 1.3 x 1.6 cm nodule right lower lobe peripheral 1.5 x 2.2 cm nodule R4 1.6 x 1.9 cm lymph node 2D echo 07/29/2021: EF 50-55%, moderate size inferior posterior wall hypokinesis, mild AR, grade 1 diastolic dysfunction, mild to moderate MR. No clear vegetations --Pulmonary nodules Both of them are on the periphery with one having possible cavitary lesion Patient has minimal reactive mediastinal lymphadenopathy as well as station 4R I will treat as if the patient has pneumonia right now She will need a repeat CAT scan in 6-8 weeks to see if the nodule still present and if they are still present then PET/CT could be considered --Ex-smoker Patient does have [id number] smoking history, quit at the age of 38 She denies any issues with her breathing She is usually wheelchair-bound I do not think patient needs to be on any standing inhalers --A. fib On anticoagulation apixaban --History of antiphospholipid syndrome Plan: 2D echo did not show any signs of vegetations Continue with antibiotics for at least 5-[address] chest in 6-8 weeks to see if the nodules are still present Based on the repeat CAT scan the next course will be decided for the patient Outpatient follow-up with a group billing coordinator No further recommendation from pulmonary perspective. Will sign off Please call directly with any questions Please note the above document was generated using voice recognition software. It may contain grammatical, syntax or spelling errors.Any formal questions or concerns about the content, text or information contained within the body of this dictation should be directly addressed to the provider for clarification. Admission and Anticipated Discharge Date Admission Date: July 28, 2021 Subjective Patient seen and examined at bedside. No acute distress, no deficits overnight Patient was actually sleeping at the time of examination Denies any chest pain, good appetite No nausea or vomiting No coughing. Review of Systems Review of Systems: All systems reviewed & are unremarkable except as noted in Subjective Physical Exam Physical Exam: Constitutional: No acute distress HEENT: EOMI, PERRLA Respiratory system: Decreased antibiotic, no wheeze, no rhonchi, mild crackles bilateral lower lobes CVS: S1-S2 positive, no murmurs or gallops Abdomen: Soft, nontender, nondistended, positive bowel sounds x4 Extremities: +2 pulses bilaterally radialis/ dorsalis pedis, no cyanosis, no edema, left upper extremity contracture Neuro: Awake alert oriented x3 Psych: Normal mood and affect G/U: No Ma Skin: no rashes, warm and dry Lymphatic: no cervical or axillary lymphadenopathy Results & Data Results & Data ([facility]) Vital Signs (Past 12 Hours) Vital Signs Temp Pulse Pulse Resp BP BP Pulse Ox 07/29/21 11:41 36.3 C L 65 16 128/71 97 07/29/21 08:04 36.3 C L 52 L 16 137/76 99 07/29/21 07:28 48 L 07/29/21 04:33 36.4 C L 54 L 20 133/62 96 Laboratory Results 07/29/21 05:16 07/29/21 06:13 PG Care Time/CCT Total # of Minutes Spent Total Time Spent with Patient: Total time spent is greater than 50% in coordination of care (as documented) at patient's floor/unit and/or counseling patient: Coding Level of Care Code 18068 Subseq Hosp Care Lvl 2 Diagnoses Multiple pulmonary nodules R91.[address] R93.89
[2021-07-29] MEDS: traZODone HCL 50 MG TAB PO SCH (20:52)
[2021-07-29] MEDS: MIRTAZAPINE TAB 15 MG TAB PO SCH (20:52)
[2021-07-30] MEDS: DOXYCYCLINE HYCLATE 100 MG in DEXTROSE 5% 100 ML IV SCH ×2 (01:57→14:27)
[2021-07-30 06:57] LABS: Hematocrit (blood only) 37.7 % (37-47); Mean Corpuscular Hemoglobin 30.9 pg (25-34); Mean Corpuscular Hgb Conc 31.8 g/dL (32-36); Mean Corpuscular Volume 97.2 fL (80-100); Mean Platelet Volume 9.2 fL (7.4-10.4); Platelet Count 267 K/uL (130-400); RDW Coefficient of Variation 13.5 % (11.5-14.5); RDW Standard Deviation 48.1 fL (36.4-46.3); Red Blood Count 3.88 M/uL (4.2-5.4)
[2021-07-30 07:29] LABS: BUN Creatinine Ratio 28.8 (10-20); Calcium 8.7 mg/dl (8.5-10.1); Creatinine Clr Calc Pharmacy 64.7 ml/min; Est GFR (African American) 82.4 ml/min; Est GFR (Non-African American) 71.1 ml/min
[2021-07-30] MEDS: LOSARTAN POTASSIUM 25 MG TAB PO SCH (07:50)
[2021-07-30] MEDS: ATORVASTATIN 40 MG TAB PO SCH (07:51)
[2021-07-30] MEDS: CHOLECALCIFEROL 1,000 UNITS 25 MCG TAB PO SCH (07:51)
[2021-07-30] MEDS: CLOPIDOGREL BISULFATE 75 MG TAB PO SCH (07:51)
[2021-07-30] MEDS: APIXABAN 5 MG TABLET PO SCH ×2 (07:51→17:08)
[2021-07-30] MEDS: CITALOPRAM 40 MG TAB PO SCH (07:51)
[2021-07-30] MEDS: POLYETHYLENE (MIRALAX) 17 GM PACK PO SCH (07:52)
[2021-07-30] MEDS: CETIRIZINE HCL 10 MG TABLET PO SCH (07:52)
[2021-07-30] MEDS: busPIRone 5 MG TAB PO SCH ×2 (07:52→17:09)
[2021-07-30] MEDS: FUROSEMIDE 40 MG TAB PO SCH (07:52)
[2021-07-30] MEDS: DOCUSATE SODIUM 100 MG CAP PO SCH ×2 (07:52→17:08)
[2021-07-30] MEDS: LORazepam 0.5 MG TAB PO SCH ×2 (08:02→17:09)
[2021-07-30] MEDS ORDERED: METOPROLOL SUCC 25MG EXT REL TAB PO SCH (09:15)
[2021-07-30 09:16] LABS: Appearance Urine Clear (Clear); Bacteria Urine Automated 1+ (Negative); Bilirubin Urine Negative (Negative); Blood Urine Negative (Negative); Color Urine Yellow; Glucose Urine UA Negative (Negative); Ketones Urine Negative (Negative); Leukocyte Esterase Urine Trace (Negative); Nitrite Urine Negative (Negative); Protein Urine Negative (Negative); Specific Gravity Urine 1.012 (1.000-1.030); Urobilinogen Urine Negative (Negative); pH Urine 5.5 (4.5-7.5)
[2021-07-30 09:39] LABS: RBC Urine Automated 0-4 /hpf (0-4)
[2021-07-30] MEDS ORDERED: METOPROLOL SUCC 25MG EXT REL TAB PO ONE (14:18)
[2021-07-30] MEDS: cefTRIAXone SODIUM 2,000 MG in DEXTROSE 5% 50 ML IV SCH (14:26)
[2021-07-30] MEDS: ACETAMINOPHEN 325 MG TAB PO PRN ×2 (17:08→20:23)
--- NOTE | 2021-07-30 17:44 | Hospitalist Progress Note ---
Date of Service July 30, 2021 Assessment & Plan (1) Fall: (2) Abnormal chest CT: (3) Current use of residential anticoagulation: (4) Fracture, ribs: Plan: Fall H/O multiple falls H/O CVA with left-sided weakness some mostly uses wheelchair and short distance with walker. --MRI Brain:No acute intracranial abnormality. No acute or subacute infarct. Large areas of encephalomalacia within the right cerebral hemisphere and left parietal lobe with gliosis are compatible with chronic infarctions, new from the 04/06/2011 study. Age-related involutional changes with advanced chronic microvascular ischemic disease. No abnormal enhancement. Continue PT/OT Fall Precautions Pulmonary nodules Right lower lobe cavitary lesion Suspected Pneumonia --CT Chest:No acute traumatic findings within the chest. 2.2 x 1.5 cm cavitary nodular opacity within the right lower lobe. Given the additional right middle and right lower lobe airspace opacities, an infectious process is favored. However, a neoplastic process could appear similar. Therefore, a follow-up chest CT in 3 months to ensure resolution is recommended. Several mildly enlarged mediastinal lymph nodes which should be assessed on follow-up CT. Emphysema. Suspected mild interstitial pulmonary edema. --ECHO: No signs of vegetation. EF 50 to 55%. Moderate size inferior and posterior wall abnormality with hypokinesis to akinesis. Mild AR. Mild to moderate MR. Grade 1 diastolic dysfunction. --Continue antibiotics to complete 5 to 7-day course Needs repeat CT chest in 6 to 8 weeks Needs follow-up with pulmonology as outpatient Was advised to follow-up with cardiology as outpatient given echo findings 2 Step: Did not qualify for oxygen Abnormal urine analysis Rule out UTI Urine culture pending Continue antibiotics for now next H/O Breast cancer S/P surgery and radiation. H/O Antiphospholipid syndrome Thrombosis, PAD Continue home Eliquis, atorvastatin, Plavix. Chronic systolic and diastolic heart failure Continue losartan, Metoprolol, Lasix. DVT Px: Eliquis Code Status DNI/DNR Admission and Anticipated Discharge Date Admission Date: July 28, 2021 Subjective Patient is seen and examined at bedside Ambulated in hallway with no issues this morning Had 2 step earlier today Discussed with patient's daughter at bedside Denies any chest pain, shortness of breath, dizziness, nausea, abdominal pain Eager to get discharged Review of Systems 2 Review of Systems: All systems reviewed & are unremarkable except as noted in Subjective Physical Exam Physical Exam: Physical Exam: Vitals signs as noted above General Appearance:Obese, no apparent distress Head: normocephalic, Atraumatic Eyes: normal inspection, EOMI Neck: supple, Trachea midline Respiratory/Chest: Decreased breath sounds, CTA, No accessory muscle use Cardiovascular: S1, S2, +murmur Abdomen/GI:Soft, Non tender, Bowel sounds present Extremities/Musculoskeletal:normal inspection, no edema Neurologic/Psych:AAOX3, grossly no focal neurological deficits Skin: normal color, warm Results & Data Results & Data ([facility]) Vital Signs (Past 12 Hours) Vital Signs Temp Pulse Pulse Pulse Pulse Resp Resp 07/30/21 15:58 36.8 C 74 16 07/30/21 15:28 07/30/21 12:59 132 H 118 H 82 22 07/30/21 12:26 07/30/21 11:46 07/30/21 07:34 36.4 C L 84 16 Resp Resp BP Pulse Ox Pulse Ox Pulse Ox Pulse Ox 07/30/21 15:58 142/60 H 94 07/30/21 15:28 160/62 H 07/30/21 12:59 20 18 90 95 95 07/30/21 12:26 97 07/30/21 11:46 99 07/30/21 07:34 185/69 H 96 Laboratory Results Short CBC 07/30/21 Range/Units 06:39 WBC 5.80 (4.8-10.8) K/uL Hgb 12.0 (12.0-16.0) g/dL Hct 37.7 (37-47) % Plt Count 267 (130-400) K/uL BMP 07/30/21 06:39 Sodium 140 Potassium 4.0 Chloride 105 Carbon Dioxide 29 BUN 23 Creatinine 0.80 Glucose 83 Calcium 8.7 Urine 07/30/21 Range/Units 09:00 Urine Color Yellow Urine Appearance Clear (Clear) Urine pH 5.5 (4.5-7.5) Ur Specific [place] 1.012 (1.000-1.030) Urine Protein Negative (Negative) Urine Glucose (UA) Negative (Negative) (1) Fall Encounter type: initial encounter Qualified Code(s): W19.XXXA - Unspecified fall, initial encounter (2) Fracture, ribs Encounter type: initial encounter Fracture type: closed Laterality: right Qualified Code(s): S22.41XA - Multiple fractures of ribs, right side, initial encounter for closed fracture
[2021-07-30] MEDS: traZODone HCL 50 MG TAB PO SCH (20:24)
[2021-07-30] MEDS: MIRTAZAPINE TAB 15 MG TAB PO SCH (20:25)
[2021-07-31] MEDS: LOSARTAN POTASSIUM 50 MG TAB PO SCH (01:14)
[2021-07-31] MEDS: DOXYCYCLINE HYCLATE 100 MG in DEXTROSE 5% 100 ML IV SCH ×2 (01:18→15:15)
[2021-07-31] MEDS: ACETAMINOPHEN 325 MG TAB PO PRN (02:30)
[2021-07-31] MEDS: LORAZEPAM 0.25 MG IV PRN (06:34)
[2021-07-31 06:36] LABS: Creatinine Clr Calc Pharmacy 61.7 ml/min; Est GFR (African American) 78.8 ml/min
[2021-07-31] MEDS: LORazepam 0.5 MG TAB PO SCH ×2 (08:03→16:20)
[2021-07-31] MEDS: ATORVASTATIN 40 MG TAB PO SCH (08:04)
[2021-07-31] MEDS: CLOPIDOGREL BISULFATE 75 MG TAB PO SCH (08:04)
[2021-07-31] MEDS: METOPROLOL SUCC 25MG EXT REL TAB PO SCH (08:04)
[2021-07-31] MEDS: CITALOPRAM 40 MG TAB PO SCH (08:04)
[2021-07-31] MEDS: DOCUSATE SODIUM 100 MG CAP PO SCH ×2 (08:04→16:20)
[2021-07-31] MEDS: CHOLECALCIFEROL 1,000 UNITS 25 MCG TAB PO SCH (08:04)
[2021-07-31] MEDS: POLYETHYLENE (MIRALAX) 17 GM PACK PO SCH (08:04)
[2021-07-31] MEDS: APIXABAN 5 MG TABLET PO SCH ×2 (08:04→16:20)
[2021-07-31] MEDS: FUROSEMIDE 40 MG TAB PO SCH (08:05)
[2021-07-31] MEDS: busPIRone 5 MG TAB PO SCH ×2 (08:05→16:20)
[2021-07-31] MEDS: CETIRIZINE HCL 10 MG TABLET PO SCH (08:05)
[2021-07-31] MEDS ORDERED: DICLOFENAC SOD 1% GEL 100 GM TUBE EXT PRN (12:17)
[2021-07-31] MEDS: HYDROmorphone INJ 0.5 MG/0.5 ML SYR IV PRN ×2 (12:18→22:03)
--- NOTE | 2021-07-31 13:52 | XRay Report ---
XR lumbar spine 2-3V CLINICAL HISTORY: Bilateral leg pain. COMPARISON STUDY: CT of the abdomen and pelvis July 27, 2021. FINDINGS: The bowel gas pattern is normal. Alignment of the lumbar spine is anatomic. Vertebral body heights are maintained. There is no acute fracture. Moderate multilevel degenerative disc disease and facet arthrosis is present. Sacroiliac joints are intact. IMPRESSION: 1. No acute lumbar spine fracture or subluxation. 2. Moderate multilevel degenerative disc disease and facet arthrosis within the lumbar spine. ACT 112: Negative or not required by law. Electronically signed by: Alden Judd M.D. 07/31/2021 1:51 PM
--- NOTE | 2021-07-31 14:44 | XRay Report ---
LEFT FEMUR 3 VIEWS CLINICAL HISTORY: Left leg pain. FINDINGS: AP, frog-leg, and lateral views of the left femur are correlated with pelvic CT dated 2021. The skeletal structures are osteopenic. There is no radiographic evidence of fracture involving the left femur or the visualized left hemipelvis. The hip and knee joints appear maintained. The ove rlying soft tissues are within normal limits. There is atherosclerotic calcification of the left femo ral artery. IMPRESSION: There is no radiographic evidence of left femoral fracture. Electronically signed by: Pepe Nails M.D. 07/31/2021 2:42 PM
[2021-07-31] MEDS: GABAPENTIN 100 MG CAP PO SCH ×2 (15:15→21:48)
[2021-07-31] MEDS: cefTRIAXone SODIUM 2,000 MG in DEXTROSE 5% 50 ML IV SCH (15:16)
--- NOTE | 2021-07-31 17:19 | Hospitalist Progress Note ---
Date of Service July 31, 2021 Assessment & Plan (1) Fall: (2) Abnormal chest CT: (3) Current use of [facility]dc anticoagulation: (4) Fracture, ribs: Plan: Fall H/O multiple falls H/O CVA with left-sided weakness some mostly uses wheelchair and short distance with walker. Leg Pain --MRI Brain:No acute intracranial abnormality. No acute or subacute infarct. Large areas of encephalomalacia within the right cerebral hemisphere and left parietal lobe with gliosis are compatible with chronic infarctions, new from the 04/06/2011 study. Age-related involutional changes with advanced chronic microvascular ischemic disease. No abnormal enhancement. Continue PT/OT Fall Precautions Started on Gabapentin, diclofenac cream Pulmonary nodules Right lower lobe cavitary lesion Suspected Pneumonia --CT Chest:No acute traumatic findings within the chest. 2.2 x 1.5 cm cavitary nodular opacity within the right lower lobe. Given the additional right middle and right lower lobe airspace opacities, an infectious process is favored. However, a neoplastic process could appear similar. Therefore, a follow-up chest CT in 3 months to ensure resolution is recommended. Several mildly enlarged mediastinal lymph nodes which should be assessed on follow-up CT. Emphysema. Suspected mild interstitial pulmonary edema. --ECHO: No signs of vegetation. EF 50 to 55%. Moderate size inferior and posterior wall abnormality with hypokinesis to akinesis. Mild AR. Mild to moderate MR. Grade 1 diastolic dysfunction. --Continue antibiotics to complete 5 to 7-day course Needs repeat CT chest in 6 to 8 weeks Needs follow-up with pulmonology as outpatient Was advised to follow-up with cardiology as outpatient given echo findings 2 Step: Did not qualify for oxygen Abnormal urine analysis Rule out UTI Urine culture pending Continue antibiotics for now H/O Breast cancer S/P surgery and radiation. H/O Antiphospholipid syndrome Thrombosis, PAD Continue home Eliquis, atorvastatin, Plavix. Chronic systolic and diastolic heart failure Continue losartan, Metoprolol, Lasix. DVT Px: Eliquis Code Status DNI/DNR Admission and Anticipated Discharge Date Admission Date: July 28, 2021 Subjective Patient is seen and examined at bedside States having pain of B/L LE, Left > Right Denies any trauma Denies any chest pain, shortness of breath, dizziness, nausea, abdominal pain Review of Systems Review of Systems: All systems reviewed & are unremarkable except as noted in Subjective Physical Exam Physical Exam: Physical Exam: Vitals signs as noted above General Appearance:Obese, no apparent distress Head: normocephalic, Atraumatic Eyes: normal inspection, EOMI Neck: supple, Trachea midline Respiratory/Chest: Decreased breath sounds, CTA, No accessory muscle use Cardiovascular: S1, S2, +murmur Abdomen/GI:Soft, Non tender, Bowel sounds present Extremities/Musculoskeletal:normal inspection, no edema Neurologic/Psych:AAOX3, grossly no focal neurological deficits Skin: normal color, warm Results & Data Results & Data ([facility]) Vital Signs (Past 12 Hours) Vital Signs Temp Pulse Pulse Resp BP Pulse Ox 07/31/21 15:06 36.5 C 74 18 185/78 H 92 07/31/21 12:57 94 07/31/21 11:07 36.5 C 57 L 18 148/75 H 90 07/31/21 07:37 48 L 07/31/21 07:28 36.4 C L 52 L 18 176/71 H 90 Laboratory Results BMP 07/31/21 05:22 Creatinine 0.83 (1) Fall Encounter type: initial encounter Qualified Code(s): W19.XXXA - Unspecified fall, initial encounter (2) Fracture, ribs Encounter type: initial encounter Fracture type: closed Laterality: right Qualified Code(s): S22.41XA - Multiple fractures of ribs, right side, initial encounter for closed fracture
[2021-07-31] MEDS: MIRTAZAPINE TAB 15 MG TAB PO SCH (21:48)
[2021-07-31] MEDS: traZODone HCL 50 MG TAB PO SCH (21:48)
[2021-08-01] MEDS: DOXYCYCLINE HYCLATE 100 MG in DEXTROSE 5% 100 ML IV SCH (01:38)
[2021-08-01 06:56] LABS: BUN Creatinine Ratio 23.2 (10-20); Calcium 9.1 mg/dl (8.5-10.1); Creatinine Clr Calc Pharmacy 62.2 ml/min; Potassium 3.7 mmol/L (3.5-5.1)
[2021-08-01] MEDS: POLYETHYLENE (MIRALAX) 17 GM PACK PO SCH (08:38)
[2021-08-01] MEDS: busPIRone 5 MG TAB PO SCH (08:38)
[2021-08-01] MEDS: CLOPIDOGREL BISULFATE 75 MG TAB PO SCH (08:38)
[2021-08-01] MEDS: LOSARTAN POTASSIUM 50 MG TAB PO SCH (08:38)
[2021-08-01] MEDS: GABAPENTIN 100 MG CAP PO SCH (08:38)
[2021-08-01] MEDS: CHOLECALCIFEROL 1,000 UNITS 25 MCG TAB PO SCH (08:38)
[2021-08-01] MEDS: LORazepam 0.5 MG TAB PO SCH (08:38)
[2021-08-01] MEDS: CETIRIZINE HCL 10 MG TABLET PO SCH (08:39)
[2021-08-01] MEDS: ATORVASTATIN 40 MG TAB PO SCH (08:39)
[2021-08-01] MEDS: METOPROLOL SUCC 25MG EXT REL TAB PO SCH (08:39)
[2021-08-01] MEDS: FUROSEMIDE 40 MG TAB PO SCH (08:39)
[2021-08-01] MEDS: CITALOPRAM 40 MG TAB PO SCH (08:39)
[2021-08-01] MEDS: APIXABAN 5 MG TABLET PO SCH (08:39)
[2021-08-01] MEDS: DOCUSATE SODIUM 100 MG CAP PO SCH (08:39)
--- NOTE | 2021-08-01 12:57 | Hospitalist Progress Note ---
Date of Service August 01, 2021 Assessment & Plan (1) Fall: (2) Abnormal chest CT: (3) Current use of detention anticoagulation: (4) Fracture, ribs: Plan: Fall H/O multiple falls H/O CVA with left-sided weakness some mostly uses wheelchair and short distance with walker. Leg Pain --MRI Brain:No acute intracranial abnormality. No acute or subacute infarct. Large areas of encephalomalacia within the right cerebral hemisphere and left parietal lobe with gliosis are compatible with chronic infarctions, new from the 04/06/2011 study. Age-related involutional changes with advanced chronic microvascular ischemic disease. No abnormal enhancement. Continue PT/OT Fall Precautions Continue Gabapentin, diclofenac cream PRN Pulmonary nodules Right lower lobe cavitary lesion Suspected Pneumonia --CT Chest:No acute traumatic findings within the chest. 2.2 x 1.5 cm cavitary nodular opacity within the right lower lobe. Given the additional right middle and right lower lobe airspace opacities, an infectious process is favored. However, a neoplastic process could appear similar. Therefore, a follow-up chest CT in 3 months to ensure resolution is recommended. Several mildly enlarged mediastinal lymph nodes which should be assessed on follow-up CT. Emphysema. Suspected mild interstitial pulmonary edema. --ECHO: No signs of vegetation. EF 50 to 55%. Moderate size inferior and posterior wall abnormality with hypokinesis to akinesis. Mild AR. Mild to moderate MR. Grade 1 diastolic dysfunction. --Continue antibiotics to complete 5 to 7-day course Needs repeat CT chest in 6 to 8 weeks Needs follow-up with pulmonology as outpatient Was advised to follow-up with cardiology as outpatient given echo findings 2 Step: Did not qualify for oxygen Saturating well on room air Abnormal urine analysis UTI ruled out Urine culture Negative DC antibiotics H/O Breast cancer S/P surgery and radiation. H/O Antiphospholipid syndrome Thrombosis, PAD Continue home Eliquis, atorvastatin, Plavix. Chronic systolic and diastolic heart failure Continue losartan, Metoprolol, Lasix. DVT Px: Eliquis Code Status DNI/DNR Admission and Anticipated Discharge Date Admission Date: July 28, 2021 Subjective Patient is seen and examined at bedside States feeling well today Leg pain resolved Denies any chest pain, shortness of breath, dizziness, nausea, abdominal pain Eager to get discharged Review of Systems Review of Systems: All systems reviewed & are unremarkable except as noted in Subjective Physical Exam Physical Exam: Physical Exam: Vitals signs as noted above General Appearance:Obese, no apparent distress Head: normocephalic, Atraumatic Eyes: normal inspection, EOMI Neck: supple, Trachea midline Respiratory/Chest: Decreased breath sounds, CTA, No accessory muscle use Cardiovascular: S1, S2, +murmur Abdomen/GI:Soft, Non tender, Bowel sounds present Extremities/Musculoskeletal:normal inspection, no edema Neurologic/Psych:AAOX3, grossly no focal neurological deficits Skin: normal color, warm Results & Data Results & Data ([facility]) Vital Signs (Past 12 Hours) Vital Signs Temp Pulse Pulse Resp BP BP Pulse Ox 08/01/21 12:35 95 08/01/21 11:19 36.8 C 66 16 113/72 96 08/01/21 07:36 53 L 08/01/21 07:14 36.4 C L 59 L 16 143/56 H 94 08/01/21 03:38 36.6 C 59 L 16 105/50 L 91 08/01/21 00:57 51 L Laboratory Results BMP 08/01/21 06:11 Sodium 139 Potassium 3.7 Chloride 104 Carbon Dioxide 29 BUN 19 Creatinine 0.82 Glucose 83 Calcium 9.1 (1) Fracture, ribs Encounter type: initial encounter Fracture type: closed Laterality: right Qualified Code(s): S22.41XA - Multiple fractures of ribs, right side, initial encounter for closed fracture (2) Fall Encounter type: initial encounter Qualified Code(s): W19.XXXA - Unspecified fall, initial encounter
--- NOTE | 2021-08-01 13:30 | Discharge Summary ---
Date of Service August 01, 2021 Admission HPI Per Admitting Provider CHIEF COMPLAINT: Status post fall. HISTORY OF PRESENT ILLNESS: This 75-year-old female with past medical history significant for hyperlipidemia, hypertension, chronic kidney disease stage III, chronic systolic and diastolic CHF, hypertension, history of CVA and left sided weakness, history of internal and right carotid artery occlusion, nonrheumatic aortic valve and insufficiency, mitral valve regurgitation, history of arterial thrombosis, peripheral artery disease, generalized osteoarthritis, antiphospholipid syndrome, psoriasis, depression, anxiety, left hemianopia. The patient lives at [facility] with her . She is mostly wheelchair bound and she can walk short distance with a walker. She eats regular food and swallows okay. Daughter is in the room who is helping with the history. Since yesterday, she has getting more weak on left side than usual and today after eating dinner, she was trying to come back to room and trying to go to bathroom with a walker when she felt weak and fell backwards and brought in here. Imaging x-rays shows possible acute on chronic rib fractures, some questionable cavitary lesions on CT chest. Daughter is also worried that she might have new stroke. Initial CT head was okay. Daughter is okay to get MRI scan of the brain. Currently, the patient received some pain medication, mostly is drowsy. She states the pain is better and she is doing okay. As per daughter, no complaints of any chest pain or shortness of breath, no cough, no fevers, no nausea, no vomiting, no abdominal pain. Normal bowel and bladder movements. No other complaints. Admission Exam Per Admitting Provider PHYSICAL EXAMINATION: GENERAL: The patient is somewhat drowsy. VITAL SIGNS: Temperature 36.3, pulse 54, respiratory rate 21, blood pressure 146/67, oxygen 94% on 2 liters. HEENT: Pupils equal, round and reactive to light. Oral mucosa dry. NECK: No JVD, no neck masses. CARDIOVASCULAR: S1 and S2 heard. Regular rate and rhythm. No murmur, no gallop. RESPIRATORY SYSTEM: Normal AP diameter. No accessory muscle use. No wheezing, no crackles. ABDOMEN: Soft, bowel sounds present, nontender, no distention. CENTRAL NERVOUS SYSTEM: Alert and awake. Obeys simple commands. Moves extremities and left-sided weakness is present. EXTREMITIES: No edema, no erythema. Principal Diagnosis Multiple falls Pulmonary nodules Right lower lobe cavitary lesion Suspected Pneumonia Discharge Data Allergies Allergy/AdvReac Type Severity Reaction Status Date / Time atorvastatin AdvReac Intermediate severe Verified 07/27/21 20:55 myalgias--SEE COMMENT morphine AdvReac Intermediate N/V Verified 07/27/21 20:55 Consultations 07/27/21 23:02 ED Decision to Admit Stat 07/28/21 09:02 Consult Pulmonology Routine Ordered Studies 07/27/21 19:52 CT abd pelvis IV con only Stat CT cervical spine wo con Stat CT chest diagnostic w con Stat CT head/brain wo con Stat 07/28/21 03:54 MR brain wo/w con Urgent Hospital Course (1) Fall: (2) Abnormal chest CT: (3) Current use of longterm anticoagulation: (4) Fracture, ribs: Fall H/O multiple falls H/O CVA with left-sided weakness some mostly uses wheelchair and short distance with walker. Leg Pain --MRI Brain:No acute intracranial abnormality. No acute or subacute infarct. Large areas of encephalomalacia within the right cerebral hemisphere and left parietal lobe with gliosis are compatible with chronic infarctions, new from the 04/06/2011 study. Age-related involutional changes with advanced chronic microvascular ischemic disease. No abnormal enhancement. Continue PT/OT Fall Precautions Continue Gabapentin, diclofenac cream PRN Pulmonary nodules Right lower lobe cavitary lesion Suspected Pneumonia --CT Chest:No acute traumatic findings within the chest. 2.2 x 1.5 cm cavitary nodular opacity within the right lower lobe. Given the additional right middle and right lower lobe airspace opacities, an infectious process is favored. However, a neoplastic process could appear similar. Therefore, a follow-up chest CT in 3 months to ensure resolution is recommended. Several mildly enlarged mediastinal lymph nodes which should be assessed on follow-up CT. Emphysema. Suspected mild interstitial pulmonary edema. --ECHO: No signs of vegetation. EF 50 to 55%. Moderate size inferior and posterior wall abnormality with hypokinesis to akinesis. Mild AR. Mild to moderate MR. Grade 1 diastolic dysfunction. --Continue antibiotics to complete 5 to 7-day course Needs repeat CT chest in 6 to 8 weeks Needs follow-up with pulmonology as outpatient Was advised to follow-up with cardiology as outpatient given echo findings 2 Step: Did not qualify for oxygen Saturating well on room air Abnormal urine analysis UTI ruled out Urine culture Negative DC antibiotics H/O Breast cancer S/P surgery and radiation. H/O Antiphospholipid syndrome Thrombosis, PAD Continue home Eliquis, atorvastatin, Plavix. Chronic systolic and diastolic heart failure Continue losartan, Metoprolol, Lasix. DVT Px: Eliquis Code Status DNI/DNR Total Time Total Time Spent Total Time Spent (In Minutes): 44 minutes Discharge Plan Discharge Items Patient Disposition: Transfer [facility] Reason For Visit: FALL Discharge Diagnosis: Multiple falls Pulmonary nodules Right lower lobe cavitary lesion Suspected Pneumonia Activity: Per Instructions section Exercise/Sports: Gradually increase as tolerated Non-emergency contact: Primary Care Provider Call non-emergency contact if: you have any medication questions, your symptoms worsen, your pain is concerning for you and you have a fever Follow-up/Referrals: Nishi Patel PA-C [Primary Care Provider] - Diet: Heart Healthy Diet Texture: Easy to Chew Addtl Attending Provider Instructions: Follow-up with your primary care physician Mariano Patel PA-C in 1 week Follow-up with your sanitation lead in 4 weeks as advised ---Get CT chest in 6-8 weeks and follow up with your sanitation lead for further recommendations. --Complete the antibiotic course as prescribed. (Doxycycline, cefdinir) for 3 more days. --- Your blood pressure medication losartan is increased to 50 mg daily for better control of your blood pressure. Further adjustment of your medications as per your primary care physician. Seek immediate medical attention if your symptoms reoccur or worsen Please take all medications as instructed on discharge list below. Please call if you have any questions or problems. You can reach a [facility] hospitalist on duty at [facility] 24 hours a day by calling [phone] Pending Studies at Discharge: No Stand-Alone Forms: My [facility] Skilled Items Patient informed of condition?: Yes DNR: Yes Discharge Level of Care: Skilled Communicable Disease: No Discharge Prognosis: Stable Lines: None Urinary Catheter: No Medications and DC Order Prescriptions: New losartan 50 mg Tablet 50 mg PO QAM Qty: 30 RF: 0 diclofenac sodium [Voltaren Arthritis Pain] 1 % Gel 2 g EXT BID PRN (Reason: Pain ) 7 Days Qty: 1 RF: 0 doxycycline hyclate 100 mg tablet 100 mg PO BID 3 Days Qty: 6 RF: 0 cefdinir 300 mg capsule 300 mg PO BID Qty: 6 RF: 0 Continued furosemide [Lasix] 40 mg Tablet 40 mg PO QAM RF: 0 atorvastatin 40 mg tablet 40 mg PO QAM RF: 0 buspirone 5 mg Tablet 5 mg PO BID17 RF: 0 citalopram 40 mg Tablet 40 mg PO QAM RF: 0 trazodone 50 mg Tablet 50 mg PO HS RF: 0 cetirizine [Zyrtec] 10 mg Tablet 10 mg PO QAM RF: 0 clopidogrel [Plavix] 75 mg Tablet 75 mg PO QAM RF: 0 acetaminophen [Tylenol Extra Strength] 500 mg Tablet 1,000 mg PO Q6H MDD 3 GRAMS/24 HOURS PRN (Reason: Pain) RF: 0 lorazepam 0.5 mg Tablet 0.5 mg PO BID17 RF: 0 nitroglycerin [Nitrostat] 0.4 mg Tablet, Sublingual 0.4 mg sublingual DIRECTED PRN (Reason: Chest Pain) RF: 0 docusate sodium 100 mg Capsule 100 mg PO BID17 RF: 0 mirtazapine 15 mg Tablet 15 mg PO HS RF: 0 metoprolol succinate 25 mg Tablet Extended Release 24 Hr 25 mg PO QAM RF: 0 polyethylene glycol 3350 [Miralax] 17 gram/dose Powder 17 g PO QAM RF: 0 white petrolatum [Vaseline] Gel 1 applic TOPICAL BID17 RF: 0 cholecalciferol (vitamin D3) [Vitamin D3] 25 mcg (1,000 unit) Capsule 25 mcg PO QAM RF: 0 Eliquis 5 mg Tablet 5 mg PO BID17 RF: 0 Discontinued losartan 25 mg Tablet 25 mg PO QAM RF: 0 Discharge Orders: Discharge Order (Routine); Ordered 08/01/21 Ordered By: Tomas Waddell Admission Data Admit Date/Time: 07/28/21 00:25 Attending Provider: Tomas Waddell Admit Provider: Alfonzo Harris Primary Care Provider: Nishi Patel Other Providers: Alfonzo Harris [place]
== END 2021-08-01 14:50 | DRG 56 ==
LOC: ED 19:40 → SUATTDRO 07-28 00:25 → EDINP 07-28 00:25 → 2N 07-28 03:18